=== PATIENT | male | born 1955 | race Hispanic/Latino ===

== ENCOUNTER → 2018-07-20 | Outpatient (CLI) | payer OTHER, MEDICARE ==
[~2018-07-20] MED LIST: ATOR10 PO; CEPH500C2 PO; FLUC200T PO; GLIP1TAB6 PO; LISI-617 PO; TAMS0.4C32 PO
== END | disposition home or self-care (01) ==
LOC: RAH 12:21
PROVIDERS: ATTEND Urology
DX: N28.1 Cyst of kidney, acquired (principal); Z87.440 Personal history of urinary (tract) infections
CPT/HCPCS: 76770